=== PATIENT | male | born 1935 | race Caucasian/White ===

== ENCOUNTER → 2017-05-04 | Outpatient (CLI) | payer BC ==
[~2017-05-04] MED LIST: IOPAMIDOL (ISOVUE-300) 100 ML BTL ONE
== END ==
LOC: FIMAGING 13:57
PROVIDERS: ATTEND Family Medicine
DX: K57.30 Diverticulosis of large intestine without perforation or abscess without bleeding (principal); K80.20 Calculus of gallbladder without cholecystitis without obstruction
CPT/HCPCS: Q9967

== ENCOUNTER 2017-05-29 07:55 | Day surgery (SDC) | payer BC ==
[2017-05-29] MEDS ORDERED: cefOXitin SODIUM 2 GM in D5W 100 ML IV ONE (08:09)
[2017-05-29 08:32] VITALS: PULSE 62
[2017-05-29] MEDS ORDERED: BUPIVACAINE 0.5% 30 ML SDV ONE (08:59)
[2017-05-29] MEDS ORDERED: HEPARIN 1000 UNIT/1 ML MDV ONE (08:59)
--- NOTE | 2017-05-29 09:04 | PDHPUP ---
History & Physical Update H&P update statement: This history and physical update is based on an assessment of the patient which was completed after admission or registration (within 24 hours), but prior to the surgery/procedure. H&P update: H&P reviewed & patient examined, no change in patient's condition since H&P completed
--- NOTE | 2017-05-29 10:29 | POSTOPPROG ---
Post Op Note Date of Operation: 05/29/17 Surgeon: Hoa Gaspar [employer] Practitioner: Carrol Don Anesthesiologist: Yvonne Ross Anesthesia: GET(General Endotracheal) Pre-op Diagnosis: cholelithiasis, umbilical hernia Post-op Diagnosis: same, fatty liver Procedure: lap yisel, umbilical hernia repair, liver biopsy Findings: gallstones, umbilical defect Inf/Abcess present in the surg proc area at time of surgery?: No EBL: Minimal Complications: none Specimen(s): gallbladder to pathology
--- NOTE | 2017-05-29 10:40 | PDANEPAE ---
ANE History of Present Illness 81 yo male with cholelithiasis. ANE Past Medical History - Cardiovascular History Hx Hypertension: Yes Hx Arrhythmias: Yes Hx Chest Pain: No Hx Coronary Artery / Peripheral Vascular Disease: No Hx CHF / Valvular Disease: No Hx Palpitations: No Cardiovascular History Comment: pacer for bradycardia and pauses 2014. A fib- on Pradaxa. - Pulmonary History Hx COPD: No Hx Asthma/Reactive Airway Disease: No Hx Recent Upper Respiratory Infection: No Hx Oxygen in Use at Home: No Hx Sleep Apnea: No Sleep Apnea Screening Result - Last Documented: Positive - Neurologic History Hx Cerebrovascular Accident: No Hx Seizures: No Hx Dementia: No - Endocrine History Hx Diabetes: No - Renal History Hx Renal Disorders: No - Liver History Hx Hepatic Disorders: No - Neurological & Psychiatric Hx Hx Neurological and Psychiatric Disorders: Yes Neurological / Psychiatric History Comment: "old back- walk bent over" - Cancer History Hx Cancer: No - Congenital Disorder History Hx Congenital Disorders: No - GI History Hx Gastrointestinal Disorders: Yes Gastrointestinal History Comment: cholelithiasis, umbilical hernia. diarrhea - Chronic Pain History Chronic Pain: No - Surgical History Prior Surgeries: cardiac ablation. pacemaker 2015. thumb surgery. 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[employer] ANE Patient History - Allergies Allergies/Adverse Reactions: simvastatin [Simvastatin] Allergy (Verified 05/26/17 17:55) Other-Enter Comments - Home Medications Home Medications: Calcium Carbonate [Calcium] 1,000 mg PO DAILY 04/20/15 [Last Taken 05/26/17] Dutasteride [Avodart 0.5 MG (*)] 0.5 mg PO HS 04/20/15 [Last Taken 05/26/17] Fish Oil/Dha/Epa [Fish Oil 1,200 mg Fish Oil] 2 each PO DAILY 04/20/15 [Last Taken 05/26/17] Gemfibrozil [Lopid 600 MG (*)] 300 mg PO BIDAC 04/20/15 [Last Taken 05/26/17] Melatonin [Melatonin 5 mg] 2.5 mg PO HS 04/20/15 [Last Taken 05/26/17] Multivitamins [Multivitamin (*)] 1 each PO DAILY 04/20/15 [Last Taken 05/26/17] Vitamin B12 07/21/16 [Last Taken 05/26/17] Bystolic 05/26/17 [Last Taken 05/29/17] Pradaxa 05/26/17 [Last Taken 05/26/17 18:25] - NPO status NPO Since - Liquids (Date): 05/28/17 NPO Since - Liquids (Time): 21:00 NPO Since - Solids (Date): 05/28/17 NPO Since - Solids (Time): 18:30 - Anes Hx Hx Anesthesia Complications (with details): difficulty with urination after long GA - Smoking Hx Smoking Status: Never smoked Marijuana use: No - Alcohol Use Alcohol Use: Rarely - Family Anes Hx Family Anes Hx: neg - N/A ANE Labs/Vital Signs - Vital Signs Blood Pressure: 130/62 Heart Rate: 62 Respiratory Rate: 16 O2 Sat (%): 96 Height: 175.26 cm Weight: 81.647 kg ANE Physical Exam - Airway Neck exam: FROM Mallampati Score: Class 3 Mouth exam: normal dental/mouth exam - Pulmonary Pulmonary: no respiratory distress, clear to auscultation - Cardiovascular Cardiovascular: regular rate and rhythym - ASA Status ASA Status: III ANE Anesthesia Plan Anesthesia Plan: general endotracheal anesthesia
[2017-05-29] MEDS ORDERED: LIDOCAINE 2% 5 ML SDV ONE (10:55)
[2017-05-29] MEDS ORDERED: fentaNYL 100 MCG/2 ML INJ ONE ×2 (10:55)
[2017-05-29] MEDS ORDERED: PROPOFOL/EMULSION 500 MG/50 ML BOTTLE IV ONE (10:55)
[2017-05-29] MEDS ORDERED: DEXAMETHASONE 4 MG/ML VIAL ONE (10:55)
[2017-05-29] MEDS ORDERED: ROCURONIUM 50 MG/5 ML VIAL ONE (10:55)
[2017-05-29] MEDS: ceFAZolin 1 GM/5 ML SYR ONE ×2 (11:03→11:53)
[2017-05-29] MEDS ORDERED: epHEDrine SULFATE 10 MG/ML SYR ONE (11:21)
[2017-05-29] MEDS ORDERED: KETOROLAC 30 MG/1 ML SDV ONE (11:26)
[2017-05-29] MEDS ORDERED: ONDANSETRON 4 MG/2 ML VIAL ONE (11:26)
[2017-05-29] MEDS ORDERED: PROMETHAZINE HCL 25 MG/ML INJ IVP PRN (11:43)
[2017-05-29] MEDS ORDERED: ENALAPRILAT DIHYDRATE 1.25 MG/ML VIAL IVP PRN (11:43)
[2017-05-29] MEDS ORDERED: ACETAMINOPHEN 500 MG TAB PO PRN (11:43)
[2017-05-29] MEDS ORDERED: fentaNYL 100 MCG/2 ML INJ IVP PRN (11:43)
[2017-05-29] MEDS ORDERED: NALOXONE HCL 0.4 MG/ML INJ IVP PRN (11:43)
[2017-05-29] MEDS ORDERED: HYDROCODONE/APAP 5/325 TAB PO PRN (11:43)
[2017-05-29] MEDS ORDERED: LABETALOL HCL 50 MG/10 ML SYR IVP PRN (11:43)
[2017-05-29] MEDS ORDERED: SUGAMMADEX SODIUM 200 MG/2 ML VIAL IVP ONE (11:53)
--- NOTE | 2017-05-29 12:11 | POSTANESTH ---
Post Anesthetic Evaluation Cardiovascular Status: Normal, Stable Respiratory Status: Normal, Stable Level of Consciousness/Mental Status: Can Participate in Eval, Mildly Sleepy, Arousable Pain Control: Adequate, Prn Tx Ordered Nausea/Vomiting Control: Adequate, Prn Tx Ordered Complications Possibly Related to Anesthesia: None Noted
[2017-05-29 12:58] VITALS: TEMP 97.5
[2017-05-29 13:04] VITALS: RESP 12
[2017-05-29 13:47] VITALS: BP 139/78
[2017-05-29 13:48] VITALS: O2SAT 94
--- NOTE | 2017-05-30 06:50 | GOP ---
[f rep st] OPERATIVE REPORT DATE OF OPERATION: SURGEON: Richard Plunkett MD CLINICAL ASSISTANT PROFESSOR: Trudy Silva PA-C ANESTHESIOLOGIST: Dr. Olmos. PREOPERATIVE DIAGNOSIS: 1. Symptomatic cholelithiasis. 2. Umbilical hernia. POSTOPERATIVE DIAGNOSIS: 1. Symptomatic cholelithiasis. 2. Umbilical hernia. 3. Fatty liver. PROCEDURE PERFORMED: 1. Laparoscopic cholecystectomy. 2. Wedge liver biopsy. 3. Umbilical hernia repair. FINDINGS: Patient was found to have a slightly thickened gallbladder with multiple adhesions to the gallbladder and small gallstones. He had a markedly fatty liver. DESCRIPTION OF PROCEDURE: Patient was taken to the operating room, where he received a satisfactory general endotracheal anesthesia by Dr. Olmos. He was placed in supine position, prepped and drap ed in usual sterile fashion. A periumbilical incision was made, a Veress needle inserted, pneumoper itoneum was established. The trocar was passed through the umbilical hernia defect. Good visualiza tion was obtained. Three other trocars were placed in the upper abdomen under direct vision. The g allbladder was elevated up. Adhesions were taken down, the duodenum from the gallbladder . The cystic triangle was carefully dissected free. Cystic duct and cystic artery were dissected f ree and isolated, with care to avoid injury to the common duct. A good clear view was obtained. Bob th structures were multiply hemoclipped and divided again, with care to avoid injury to the common d uct. Peritoneum of the gallbladder was incised and the gallbladder was dissected free from the bed and the hepatic fossa, and extracted through the upper midline port site. Hemostasis was assured. A wedge biopsy was taken of the right lobe of the liver. Hemostasis was obtained with electrocauter y and the wound was dressed with some topical Tayo powder. Trocars were removed under direct visi on. Trocar sites were closed with 0 Vicryl for the fascia, 4-0 Monocryl subcuticular stitch for the skin. All layers infiltrated with 0.5% Marcaine. The umbilical hernia defect was closed with 0 Gonzalez rgilon [id number] sutures. The wound was then infiltrated with 0.5% Marcaine and closed with 3 -0 Vicryl for the subcutaneous tissue, 4-0 Monocryl subcuticular stitch for the skin. All layers in filtrated with 0.5% Marcaine, then dressed. He was taken to the recovery room in good condition. T here were no complications. /[id number]/MODL
== END 2017-05-29 13:46 | disposition home or self-care (01) ==
LOC: FSGY 07:55
PROVIDERS: ATTEND Surgery
PROC: 0FB04ZX Excision of Liver, Percutaneous Endoscopic Approach, Diagnostic (ICD-10-PCS; principal; 2017-05-29 09:45)
PROC: 0WQF4ZZ Repair Abdominal Wall, Percutaneous Endoscopic Approach (ICD-10-PCS; principal; 2017-05-29 09:45)
PROC: 0FT44ZZ Resection of Gallbladder, Percutaneous Endoscopic Approach (ICD-10-PCS; principal; 2017-05-29 09:45)
DX: K80.20 Calculus of gallbladder without cholecystitis without obstruction (principal); K42.9 Umbilical hernia without obstruction or gangrene; I48.91 Unspecified atrial fibrillation; N40.0 Benign prostatic hyperplasia without lower urinary tract symptoms; E78.5 Hyperlipidemia, unspecified; I10 Essential (primary) hypertension; M81.0 Age-related osteoporosis without current pathological fracture; E21.0 Primary hyperparathyroidism; Z95.0 Presence of cardiac pacemaker; Z79.01 Long term (current) use of anticoagulants
CPT/HCPCS: J0694; J1100; J1885; J2405; J2704; J3010

== ENCOUNTER 2017-12-27 08:07 | Inpatient (IN) | payer OTHER, BC ==
[~2017-12-27 08:07] MED LIST changes: +BUPI/epINEPH/KETOROLAC IU ONE; -IOPAMIDOL (ISOVUE-300) 100 ML BTL ONE; +ROPIVACAINE 0.2% 80 MG, EPINEPHrine 0.2 MG, KETOROLAC TROMETHAMINE 30 MG in SYRINGE 0 ML IU ONE; +TRANEXAMIC ACID 3,000 MG in NS (SYRINGE) 50 ML IRR ONE; +TRANEXAMIC ACID 3,000 MG/50 ML BAG IRR ONE
[2017-12-27] MEDS ORDERED: FAMOTIDINE 20 MG TAB PO ONE (08:21)
[2017-12-27] MEDS ORDERED: DEXAMETHASONE 4 MG/ML VIAL IVP ONE (08:21)
[2017-12-27] MEDS ORDERED: ACETAMINOPHEN 325 MG TAB PO ONE (08:21)
[2017-12-27] MEDS ORDERED: ceFAZolin 2 GM/SWFI 2 GM/20 ML SYR IVP ONE ×2 (08:21→14:15)
[2017-12-27] MEDS ORDERED: LR 1,000 ML IV ONE (08:22)
[2017-12-27] MEDS ORDERED: LIDOCAINE 1% 2 ML INJ ID PRN (08:22)
--- NOTE | 2017-12-27 09:44 | PDANEPAE ---
ANE Past Medical History - Cardiovascular History Hx Hypertension: Yes Hx Arrhythmias: Yes Hx Chest Pain: No Hx Coronary Artery / Peripheral Vascular Disease: No Hx CHF / Valvular Disease: No Hx Palpitations: No Cardiovascular History Comment: A-fib, Tachycardia, Bradycardia. hyperlipidemia ,SSS - Pulmonary History Hx COPD: No Hx Asthma/Reactive Airway Disease: No Hx Recent Upper Respiratory Infection: No Hx Oxygen in Use at Home: No Hx Sleep Apnea: No Sleep Apnea Screening Result - Last Documented: Positive - Neurologic History Hx Cerebrovascular Accident: No Hx Seizures: No Hx Dementia: No - Endocrine History Hx Diabetes: No - Renal History Hx Renal Disorders: No Renal History Comment: BPH - Liver History Hx Hepatic Disorders: No - Neurological & Psychiatric Hx Hx Neurological and Psychiatric Disorders: No Neurological / Psychiatric History Comment: "old back- walk bent over" - Cancer History Hx Cancer: No - Congenital Disorder History Hx Congenital Disorders: No - GI History Hx Gastrointestinal Disorders: No Gastrointestinal History Comment: cholelithiasis, umbilical hernia. diarrhea - Other Health History Other Health History: osteo-arthritis, muscle weakness, - Chronic Pain History Chronic Pain: No - Surgical History Prior Surgeries: cholecystectomy. appendectomy. tonsillectomy. cardiac ablation. pacemaker 2015. thumb surgery. 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[employer] Pacemaker Model: A2DR01 Pacemaker Mode: DDD Pacemaker Set Rate: 85 Date Pacemaker Last Checked: 11/2014 ANE Patient History - Allergies Allergies/Adverse Reactions: adhesive tape Allergy (Verified 12/11/17 11:52) simvastatin [Simvastatin] Allergy (Verified 05/26/17 17:55) Other-Enter Comments - Home Medications Home Medications: Dutasteride [Avodart 0.5 MG (*)] 0.5 mg PO HS 04/20/15 [Last Taken 12/26/17] Gemfibrozil [Lopid 600 MG (*)] 300 mg PO BIDAC 04/20/15 [Last Taken 12/20/17] Melatonin [Melatonin 5 mg] 2.5 mg PO HS 04/20/15 [Last Taken 12/20/17] Multivitamins [Multivitamin (*)] 1 each PO DAILY 04/20/15 [Last Taken 12/20/17] Cyanocobalamin [Vitamin B12 (*)] 1,000 mcg PO BID #0 07/21/16 [Last Taken ] Dabigatran Etexilate Mesyl [Pradaxa 150 MG (*)] 150 mg PO BID #0 05/26/17 [Last Taken 12/23/17] Nebivolol HCl [Bystolic] 2.5 mg PO BID #0 05/26/17 [Last Taken 12/27/17] Calcium Carbonate [Oyster Shell Calcium 500 mg (*)] 1,000 mg PO DAILY 12/11/17 [ Last Taken 12/20/17] Carboxymethylcellulose 1% [Refresh Celluvisc (*)] 1 drop EACHEYE DAILY PRN 12/11 [Last Taken 12/13/17] Cholecalciferol Vit D3 [Vitamin D3 (*)] 5,000 units PO DAILY 12/11/17 [Last Taken 12/20/17] Herbals/Supplements -Info Only 1 ea PO DAILY 12/11/17 [Last Taken 12/20/17] traMADol [Ultram 50 mg (*)] 50 mg PO DAILY PRN 12/11/17 [Last Taken 12/20/17] - NPO status NPO Since - Liquids (Date): 12/26/17 NPO Since - Liquids (Time): 04:00 NPO Since - Solids (Date): 12/26/17 NPO Since - Solids (Time): 18:00 - Smoking Hx Smoking Status: Never smoked - Family Anes Hx Family Hx Anesthesia Complications: none ANE Labs/Vital Signs - Vital Signs Blood Pressure: 131/78 Heart Rate: 76 Respiratory Rate: 16 O2 Sat (%): 97 Height: 175.26 cm Weight: 79.379 kg ANE Physical Exam - Airway Mallampati Score: Class 2 - ASA Status ASA Status: III ANE Anesthesia Plan Anesthesia Plan: spinal
[2017-12-27] MEDS ORDERED: fentaNYL 100 MCG/2 ML INJ ONE (10:00)
[2017-12-27] MEDS ORDERED: PROPOFOL/EMULSION 500 MG/50 ML BOTTLE IV ONE (10:00)
[2017-12-27] MEDS ORDERED: PHENYLEPHRINE HCL 100 MCG/ML SYR ONE (10:28)
[2017-12-27] MEDS ORDERED: ONDANSETRON 4 MG/2 ML VIAL ONE (10:28)
[2017-12-27] MEDS ORDERED: ONDANSETRON 4 MG/2 ML VIAL IVP PRN ×2 (11:39→11:49)
[2017-12-27] MEDS ORDERED: METOCLOPRAMIDE 10 MG/2 ML VIAL IVP PRN (11:39)
[2017-12-27] MEDS ORDERED: diphenhydrAMINE 25 MG CAP PO PRN (11:39)
[2017-12-27] MEDS ORDERED: CYCLOBENZAPRINE 10 MG TAB PO PRN (11:39)
[2017-12-27] MEDS ORDERED: oxyCODONE IR 5 MG TAB PO PRN (11:39)
[2017-12-27] MEDS ORDERED: PROMETHAZINE HCL 25 MG/ML INJ IVP PRN ×2 (11:39→11:49)
[2017-12-27] MEDS ORDERED: LACTULOSE 20 GM/30 ML UDCUP PO PRN (11:39)
[2017-12-27] MEDS ORDERED: TEMAZEPAM 15 MG CAP PO PRN (11:39)
[2017-12-27] MEDS ORDERED: ONDANSETRON DISINTEGRATING 4 MG TAB PO PRN (11:39)
[2017-12-27] MEDS ORDERED: BISACODYL 10 MG SUPP PR PRN (11:39)
[2017-12-27] MEDS ORDERED: POLYETHYLENE GLYCOL 3350 17 GM PKT PO PRN (11:39)
[2017-12-27] MEDS ORDERED: PROMETHAZINE HCL 25 MG SUPPR PR PRN (11:39)
[2017-12-27] MEDS ORDERED: MAGNESIUM HYDROXIDE 30 ML UDCUP PO PRN (11:39)
[2017-12-27] MEDS ORDERED: Carboxymethylcellulose 1% [Refresh Celluvisc (*)] 1 DROP EACHEYE PRN (11:39)
[2017-12-27] MEDS ORDERED: traMADol 50 MG TAB PO PRN (11:39)
[2017-12-27] MEDS ORDERED: DIPHENOXYLATE/ATROPINE LOMOTIL 1 TAB PO PRN (11:39)
--- NOTE | 2017-12-27 11:39 | POSTOPPROG ---
Post Op Note Date of Operation: 12/27/17 Surgeon: Abdoulaye Ji Help Desk Engineer: sushila ji Anesthesiologist: dr. abraham Anesthesia: Spinal Pre-op Diagnosis: right hip OA Post-op Diagnosis: same Indication: right hip pain due to OA that failed conservative measures Procedure: R RADHA ant approach Findings: severe hip OA Inf/Abcess present in the surg proc area at time of surgery?: No EBL: 100-500
[2017-12-27] MEDS ORDERED: PHENYLEPHRINE HCL 100 MCG/ML SYR IVP PRN (11:49)
[2017-12-27] MEDS ORDERED: fentaNYL 100 MCG/2 ML INJ IVP PRN (11:49)
[2017-12-27] MEDS ORDERED: NALOXONE HCL 0.4 MG/ML INJ IVP PRN (11:49)
[2017-12-27] MEDS ORDERED: LR 500 ML IV PRN (11:49)
--- NOTE | 2017-12-27 11:51 | POSTANESTH ---
Post Anesthetic Evaluation Cardiovascular Status: Similar to Pre-Op Cond Respiratory Status: Normal, Stable Level of Consciousness/Mental Status: Can Participate in Eval Pain Control: Adequate, Prn Tx Ordered Nausea/Vomiting Control: Adequate, Prn Tx Ordered Complications Possibly Related to Anesthesia: None Noted
[2017-12-27] MEDS ORDERED: LR 1,000 ML IV SCH (12:00)
[2017-12-27] MEDS: ACETAMINOPHEN 325 MG TAB PO SCH ×2 (14:27→17:54)
[2017-12-27] MEDS: GEMFIBROZIL 600 MG TAB PO SCH (17:54)
--- NOTE | 2017-12-27 18:45 | GOP ---
[f rep st] OPERATIVE REPORT DATE OF OPERATION: 12/27/2017 SURGEON: Ludmila Bernard MD [employer]OLF COACH: JOE Nash. ANESTHESIA: Spinal. PREOPERATIVE DIAGNOSIS: Right hip osteoarthritis. POSTOPERATIVE DIAGNOSIS: Right hip osteoarthritis. PROCEDURE PERFORMED: Right total hip arthroplasty with x-ray. FINDINGS: ESTIMATED BLOOD LOSS: 200 cc. INDICATIONS: The patient has progressively worsening arthritis of the hip which has failed medical m anagement. The patient understands the treatment options including continued non-operative care and h as selected surgical intervention. The patient has decided to undergo total hip arthroplasty via the direct anterior approach, understanding the risks of the procedure including, but not limited to, liz rovascular injury, infection, persistent pain, component wear and loosening, deep venous thrombosis, pulmonary embolism, limb length inequality, hip instability (including dislocation), and intra-operat alvina fractures. DESCRIPTION OF PROCEDURE: After proper identification of the patient including verification and braden ing the surgical site, the patient was brought to the operating room and placed in the supine positio n. All bony prominences were well padded. Anesthesia was induced without complication and intravenous prophylactic antibiotics were administered prior to skin incision. The operative leg was placed in the Trumpf Arch table extension and the well leg in a Yellofin leg ho lder. The patient was prepped and draped in the usual sterile fashion. The C-arm was draped for intra -operative fluoroscopy to check acetabular position, femoral component position including leg length and femoral offset. Attention was then drawn to surgical exposure of the hip. An incision was made with a #10 Bard Rober blade starting 3 cm lateral and 3 cm distal to the anterior superior iliac spine measuring 8-10 cm a nd coursing distally toward the greater trochanter. The skin and subcutaneous tissues were divided sh arply down to the fascia carly. The fascia carly was incised in line with the skin incision exposing th e underlying tensor fascia carly muscle. The muscle was bluntly elevated from the fascia and the first extracapsular Cobra retractor was placed laterally at the junction of the superior femoral neck and greater trochanter. The lateral femoral circumflex vessels were identified, cauterized, and divided w ith the Aquamantys bipolar cautery. The deep investing fascia of the TFL was divided to allow proper mobilization of the muscle preventing damage during the retraction. The reflected head of the rectus femoris muscle was elevated off the anterior hip capsule and a medial Cobra retractor was placed just proximal to the lesser trochanter. The anterior capsulotomy was made sharply from the superolateral acetabulum to the saddle junction of the superior femoral neck and greater trochanter, then coursing inferomedial towards the lesser troc hanter. The retractors were then placed in the intracapsular position for femoral neck osteotomy. Cor responding to pre-operative templating, the osteotomy was made with the oscillating saw carefully pro tecting the greater trochanter and soft tissues. The femoral head was removed from the acetabulum wit h a corkscrew and confirmed to be severely arthritic with exposed bone, deformity and osteophytes. Si milar findings were confirmed in the acetabulum. The Arch table extension was then placed in 40 degre es external rotation. Attention was then drawn to the acetabular preparation. After placement of the anterior and posterior Cobra retractors outside the labrum and intracapsular, the circumferential labrum was removed sharpl y. The foveal contents were then removed and hemostasis obtained with cautery. The first reamer selected was sized using the removed femoral head. Reaming began with medialization and then commenced in 2 mm increments at 45 degrees of abduction and 15 degrees of anteversion using fluoroscopic navigation. Reaming ceased 1 mm less than the definitive acetabular component and corres ponded to the pre-operative templating. The final acetabular component was inserted using fluoroscopy to achieve proper orientation yielding excellent purchase and stability in the acetabulum. The final acetabular liner was then placed and its seating confirmed. Attention was then turned to the femur. The Arch table extension was placed in extension and adductio n, delivering the osteotomized femoral neck into the wound. A 2-pronged femoral elevator was placed a t the calcar and another at the tip of the greater trochanter. The posterolateral capsule was release d with cautery allowing mobilization of the femur lateral and anterior for preparation. The external rotators were visualized and preserved. A curette and rongeur were used to open the starting point fo r broaching. Serial broaching started with the #0 broach and ended with the broach that exhibited exc ellent fit in the proximal femur. A change in pitch during mallet strikes was accompanied by the inab ility to advance the broach any further. The trial reduction was performed and fluoroscopic navigatio n was utilized to check limb length. Adjustments were made to equalize limb length accordingly. After the final trials were accepted they were removed and the wound was copiously lavaged. The femor al component was seated to the same depth as the final broach and the femoral head was impacted onto the clean trunnion. The hip was then reduced for the final time and once more fluoroscopy was used to check that limb length equality was achieved. The wound was irrigated and closed in layers, the fascia carly with 2-0 Quill, the subcutaneous tissue with 2-0 Quill, and the skin with Dermabond. Sterile dressings were applied. Final sharps and sponge counts were accurate. The patient was then transferred to a hospital bed and brought to the recovery room in stable condition. IMPLANTS: Accolade II size 5 at 127. The acetabular component is a 54 mm Tritanium. The liner is a T rident X3, 36 mm. Head is a Biolox Delta 36 mm, +0. The cup is a Trident II Tritanium, 54 mm. /[id number]/MODL
[2017-12-27] MEDS: SENNOSIDES/DOCUSATE SODIUM TAB PO SCH (20:38)
[2017-12-27] MEDS: NEBIVOLOL HCL 5 MG TAB PO SCH (20:38)
[2017-12-27] MEDS: FAMOTIDINE 20 MG TAB PO SCH (20:38)
[2017-12-27] MEDS ORDERED: DUTASTERIDE 0.5 MG CAP PO SCH (21:00)
[2017-12-28] MEDS: ACETAMINOPHEN 325 MG TAB PO SCH ×2 (00:11→05:11)
[2017-12-28 04:46] VITALS: RESP 16
[2017-12-28 07:21] VITALS: TEMP 98.1; O2SAT 95
[2017-12-28] MEDS ORDERED: DABIGATRAN ETEXILATE MESYL 150 MG CAP PO SCH (09:00)
[2017-12-28] MEDS: FAMOTIDINE 20 MG TAB PO SCH (09:09)
[2017-12-28] MEDS: GEMFIBROZIL 600 MG TAB PO SCH (09:09)
[2017-12-28] MEDS: NEBIVOLOL HCL 5 MG TAB PO SCH (09:10)
[2017-12-28] MEDS: SENNOSIDES/DOCUSATE SODIUM TAB PO SCH (09:11)
[2017-12-28 09:15] VITALS: BP 110/54; PULSE 80
--- NOTE | 2017-12-28 10:07 | SOAPPROG ---
SOAP Progress Note Assessment/Plan: Assessment: Patient is doing well POD 1 s/p R RADHA Pain management: pain is well controlled on oral pain meds. VTE ppx: recommend resuming predaxa, cont KAUSHIK and SCDs Anemia: level is expected initially postop. Asymptomatic. Continue to monitor D/c planning: d/c to home today pending release from PT Plan: 12/28/17 10:06 Subjective: Yimi is doing well today, denies SOB, chest pain and N/V. Objective: Vital Signs Temp Pulse Resp BP Pulse Ox 36.7 C 80 16 110/54 L 95 12/28/17 07:19 12/28/17 09:10 12/28/17 07:19 12/28/17 09:10 12/28/17 07:19 Laboratory Results 12/28/17 04:42 12/28/17 04:42 12/27/17 12/28/17 12/29/17 05:59 05:59 05:59 Intake Total 1769 Output Total 725 300 Balance 1044 -300 RLE: incision dressing is clean and dry, NVI, +pf/df ICD10 Worksheet Patient Problems: Problems Problem Status Onset Primary localized osteoarthritis of right hip Acute Bradycardia Acute
--- NOTE | 2017-12-28 10:11 | PDMN ---
Medical Necessity Medical necessity: Pt meets IP criteria; [facility] IP only surgery CPT 10909 R RADHA
--- NOTE | 2017-12-28 13:03 | GDS ---
[f rep st] DISCHARGE SUMMARY ADMISSION DIAGNOSIS: Right hip osteoarthritis. DISCHARGE DIAGNOSIS: Right hip osteoarthritis. PROCEDURE: Right total hip arthroplasty VTE PROPHYLAXIS: Recommend patient resume Pradaxa. BRIEF DESCRIPTION OF HOSPITAL STAY: Patient was admitted for an elective joint arthroplasty. The pa tient tolerated the procedure well and has passed physical therapy. The patient was given appropriat e antibiotic prophylaxis and venous thromboembolism prophylaxis. The patient's pain was well control led on oral pain medication, patient was holding down food, and had urinated. Decision was made to d ischarge the patient. The patient was given post-operative prescriptions pre-operatively. PLAN: Follow up in Dr. Bernard at [facility] as scheduled. /[id number]/MODL
== END 2017-12-28 12:26 | disposition home or self-care (01) | DRG 470 ==
LOC: F3N 08:07
PROVIDERS: ADMIT Orthopaedic Surgery; ATTEND Orthopaedic Surgery
PROC: 0SR904Z Replacement of Right Hip Joint with Ceramic on Polyethylene Synthetic Substitute, Open Approach (ICD-10-PCS; principal; 2017-12-27 10:15)
DX: M16.11 Unilateral primary osteoarthritis, right hip (principal); I10 Essential (primary) hypertension; I48.91 Unspecified atrial fibrillation; E78.5 Hyperlipidemia, unspecified
CPT/HCPCS: 97110-GP; 97116-GP; 97161-GP; 97165-GO; G8978-GP-CJ; G8979-GP-CI; G8987-GO-CI; G8988-GO-CI; G8989-GO-CI; J0171; J0690; J1100; J1885; J2370; J2405; J2704; J3010

== ENCOUNTER → 2018-06-06 | Outpatient (CLI) | payer BC, OTHER | LOC: FIMAGING 10:07 | PROVIDERS: ATTEND Nurse Practitioner Adult Health | DX: R07.89 Other chest pain (principal); I48.91 Unspecified atrial fibrillation; Z95.0 Presence of cardiac pacemaker ==

== ENCOUNTER → 2018-06-21 | Outpatient (CLI) | payer BC, OTHER ==
[~2018-06-21] MED LIST changes: -BUPI/epINEPH/KETOROLAC IU ONE; +IOPAMIDOL (ISOVUE 370) 100 ML BTL IV ONE; -ROPIVACAINE 0.2% 80 MG, EPINEPHrine 0.2 MG, KETOROLAC TROMETHAMINE 30 MG in SYRINGE 0 ML IU ONE; -TRANEXAMIC ACID 3,000 MG in NS (SYRINGE) 50 ML IRR ONE; -TRANEXAMIC ACID 3,000 MG/50 ML BAG IRR ONE
== END ==
LOC: FIMAGING 09:29
PROVIDERS: ATTEND Family Medicine
DX: R91.1 Solitary pulmonary nodule (principal); K44.9 Diaphragmatic hernia without obstruction or gangrene; R59.0 Localized enlarged lymph nodes
CPT/HCPCS: Q9967